=== PATIENT | female | born 1980 | race Caucasian/White ===

== ENCOUNTER 2018-01-15 14:34 | Emergency (ER) | payer MEDICAID ==
[2018-01-15 15:27] LABS: URINE BLOOD (Dip) POC Negative (NEGATIVE); URINE KETONES (Dip) POC Negative (NEGATIVE); URINE LEUKOCYTE EST (Dip) POC Negative (NEGATIVE); URINE NITRITE (Dip) POC Negative (NEGATIVE); URINE TOTAL PROTEIN POC Negative (NEGATIVE)
== END 2018-01-15 16:14 | disposition home or self-care (01) ==
LOC: FTE 14:34
DX: R30.0 Dysuria (principal); E11.9 Type 2 diabetes mellitus without complications
CPT/HCPCS: 81003; 81025; 87086; 99283

== ENCOUNTER 2018-04-20 10:04 | Emergency (ER) | payer MEDICAID ==
[2018-04-20 10:39] LABS: ADD MAN DIFF? NO
[2018-04-20 10:41] LABS: WHITE BLOOD COUNT 10.6 10^3/ul (4.8-10.8)
[2018-04-20 10:41] LABS: BASOPHIL # 0.1 10^3/ul (0.0-0.1); BASOPHILS % 0.7 % (0.0-2.0); EOSINOPHILS # 0.2 10^3/ul (0.0-0.5); HEMATOCRIT 37.2 % (37.0-47.0); HEMOGLOBIN 12.4 g/dl (12.0-16.0); LYMPHOCYTES # 2.7 10^3/ul (0.8-2.9); MEAN CORPUSCULAR HEMOGLOBIN 28.3 pg (29.0-33.0); MEAN CORPUSCULAR HGB CONC 33.3 g/dl (32.0-37.0); MEAN CORPUSCULAR VOLUME 84.9 fl (82.0-101.0); MEAN PLATELET VOLUME 9.5 fl (7.4-10.4); MONOCYTE # 0.7 10^3/ul (0.3-0.9); MONOCYTES % 6.6 % (0.0-11.0); NEUTROPHIL # 6.9 10^3/ul (1.6-7.5); NEUTROPHILS % 64.7 % (39.0-77.0); PLATELET COUNT 295 10^3/UL (140-415); RED BLOOD COUNT 4.38 10^6/ul (4.20-5.40); RED CELL DISTRIBUTION WIDTH 12.4 % (11.5-14.5)
[2018-04-20] MEDS: LORAZEPAM 2 MG INJ IV (10:45)
[2018-04-20] MEDS: MECLIZINE 12.5 MG TAB PO (10:45)
[2018-04-20] MEDS: ONDANSETRON 4 MG INJ IV (10:45)
[2018-04-20] MEDS: SOD CHLORIDE 0.9% 1,000 ML IV (10:46)
[2018-04-20 10:59] LABS: INR 0.87; PROTIME 11.9 Sec (11.9-14.9); PT RATIO 0.9
[2018-04-20 11:00] LABS: PARTIAL THROMBOPLASTIN TIME 25.4 Sec (25.0-35.0)
[2018-04-20 11:02] LABS: ALANINE AMINOTRANSFERASE 54 IU/L (13-69); ALBUMIN 4.3 g/dl (3.3-4.9); ALBUMIN/GLOBULIN RATIO 1.26; ALKALINE PHOSPHATASE 86 IU/L (42-121); ANION GAP 17 (8-16); ASPARTATE AMINO TRANSFERASE 33 IU/L (15-46); BILIRUBIN,INDIRECT 0.3 mg/dl (0-1.1); BILIRUBIN,TOTAL 0.3 mg/dl (0.2-1.3); BLOOD UREA NITROGEN 13 mg/dl (7-20); CALCIUM 9.2 mg/dl (8.4-10.2); CARBON DIOXIDE 21 mmol/L (21-31); CHLORIDE 103 mmol/L (97-110); CREATININE 0.42 mg/dl (0.44-1.00); GLUCOSE 245 mg/dl (70-220); POTASSIUM 3.3 mmol/L (3.5-5.1); SODIUM 138 mmol/L (135-144); TOTAL PROTEIN 7.7 g/dl (6.1-8.1)
[2018-04-20 11:13] LABS: TROPONIN-I < 0.012 ng/ml (0.000-0.120)
[2018-04-20] MEDS: POTASSIUM CHLORIDE (SR) 10 MEQ TAB PO (12:54)
== END 2018-04-20 13:56 | disposition home or self-care (01) ==
LOC: E/R 10:04
DX: R42 Dizziness and giddiness (principal); E11.65 Type 2 diabetes mellitus with hyperglycemia; R11.10 Vomiting, unspecified; R55 Syncope and collapse; E87.6 Hypokalemia; Z79.84 Long term (current) use of oral hypoglycemic drugs
CPT/HCPCS: 36415; 70450; 80053; 84484; 85025; 85610; 85730; 93005; 96374; 96375; 99285-25

== ENCOUNTER 2019-01-06 07:48 | Emergency (ER) | payer OTHER, MEDICAID ==
[2019-01-06] MEDS: LORAZEPAM 1 MG TAB PO (08:45)
[2019-01-06] MEDS: ONDANSETRON (ODT) 4 MG TAB ODT (08:45)
== END 2019-01-06 09:19 | disposition home or self-care (01) ==
LOC: E/R 07:48
DX: R42 Dizziness and giddiness (principal); E11.9 Type 2 diabetes mellitus without complications; Z79.84 Long term (current) use of oral hypoglycemic drugs
CPT/HCPCS: 81025; 82962; 93005; 99283-25